=== PATIENT | female | born 1955 | race Caucasian/White ===

== ENCOUNTER 2016-10-23 23:02 | Emergency (ER) | payer OTHER, MEDICAID ==
[~2016-10-23] VITALS: Ht 165.1 cm; Wt 134.3 kg
[~2016-10-23 23:02] MED LIST: ACIDOPHILUS PROB1 MG PO; ALBU8.5H5 INH; ALPR0.257 PO; ARFO15VI INH; ASPI-515 PO; BENZ100C4 PO; CLIN300C93 PO; ENAL10TA PO; FAMO40TA PO; FLUT250D PO; FURO40TA6 PO; HYDR25TA6 PO; LORA10TA3 PO; METO5TAB2 PO; PRED20TA PO; TERB250T3 PO; TIOT18CA INH; VERA360C2 PO
[2016-10-23] MEDS ORDERED: HYDROmorphone 1 MG/ML, 1ML ONE (23:48)
[2016-10-24] MEDS ORDERED: MORPHINE SULFATE 4 MG/ML, 1ML IVPush PRN
[2016-10-24] MEDS ORDERED: HYDROmorphone 1 MG/ML, 1ML IM ONE
[2016-10-24 00:08] LABS: ASPARTATE AMINO TRANSFERASE 14 U/L (15-37); BLOOD UREA NITROGEN 11 mg/dL (7-18)
[2016-10-24] MEDS ORDERED: CIPROFLOXACIN 500 MG TABLET PO ONE (02:30)
[2016-10-24] MEDS ORDERED: CIPROFLOXACIN 500 MG TABLET ONE (02:59)
[2016-10-24 03:03] VITALS: BP 123/51
== END 2016-10-24 03:45 | disposition home or self-care (01) ==
LOC: ED 23:30
DX: N30.01 Acute cystitis with hematuria (principal); J44.9 Chronic obstructive pulmonary disease, unspecified; I11.0 Hypertensive heart disease with heart failure; I50.9 Heart failure, unspecified; I48.91 Unspecified atrial fibrillation
CPT/HCPCS: 36415; 74176; 80053; 81001; 85025; 87086; 96372; 99285; J1170

== ENCOUNTER 2017-04-08 13:15 | Emergency (ER) | payer OTHER, MEDICAID ==
[~2017-04-08] VITALS: Ht 165.1 cm; Wt 136.6 kg
[~2017-04-08 13:15] MED LIST changes: +BENZ-17 PO; -BENZ100C4 PO; +CLIN300C8 PO; -CLIN300C93 PO; -FAMO40TA PO; +FAMO40TA4 PO
[2017-04-08 14:25] LABS: RAPID INFLUENZA A POSITIVE (Negative); RAPID INFLUENZA B Negative (Negative)
[2017-04-08 14:47] LABS: MEAN CORPUSCULAR HEMOGLOBIN 26.4 pg (27.0-34.8); MEAN CORPUSCULAR VOLUME 80.2 fL (80-100); MEAN PLATELET VOLUME 7.8 fL (7.4-10.4); PLATELET COUNT 274 x10^3/uL (130-400); RED BLOOD COUNT 5.75 x10^6/uL (3.82-5.3); RED CELL DISTRIBUTION WIDTH 14.3 % (9.6-15.2)
[2017-04-08 15:00] LABS: ALANINE AMINOTRANSFERASE 27 U/L (12-78); ALBUMIN 3.5 g/dL (3.4-5.0); ANION GAP 6 mmol/L (5-15); CALCIUM 8.8 mg/dL (8.5-10.1); CHLORIDE 101 mmol/L (98-107); CREATININE 0.68 mg/dL (0.55-1.02)
[2017-04-08] MEDS ORDERED: OSELTAMIVIR 75 MG CAPSULE PO ONE (15:00)
[2017-04-08 15:02] LABS: ALKALINE PHOSPHATASE 89 U/L (45-117); BILIRUBIN,TOTAL 0.3 mg/dL (0.2-1.0); TOTAL PROTEIN 7.8 g/dL (6.4-8.2)
[2017-04-08 15:12] LABS: MD YES
[2017-04-08 15:14] LABS: BAND#(MANUAL) 1.55 x10^3/uL; BANDS%(MANUAL) 21 % (0-7); BASOS#(MANUAL) 0.15 x10^3/uL (0-0.1); BASOS% (MANUAL) 2 % (0-1); LYMPH#(MANUAL) 1.33 x10^3/uL (1-3.4); LYMPHS% (MANUAL) 18 % (22-44); MONOS#(MANUAL) 0.22 x10^3/uL (0.3-2.7); MONOS% (MANUAL) 3 % (2-9); SEG#(MANUAL) 4.14 x10^3/uL (1.8-6.8); SEGS% (MANUAL) 56 % (42-75)
[2017-04-08 15:15] LABS: <PLATELET ESTIMATE> ADEQUATE; <PLT MORPHOLOGY> NORMAL PLT MORPH; <RBC MORPHOLOGY> NORMAL
[2017-04-08 15:16] VITALS: BP 140/88
[2017-04-08] MEDS ORDERED: POTA20TA89 PO (15:24)
== END 2017-04-08 15:38 | disposition home or self-care (01) ==
LOC: ED 15:25
DX: J09.X2 Influenza due to identified novel influenza A virus with other respiratory manifestations (principal); J44.9 Chronic obstructive pulmonary disease, unspecified; I48.91 Unspecified atrial fibrillation; I50.9 Heart failure, unspecified; E66.9 Obesity, unspecified
CPT/HCPCS: 36415; 71020; 80053; 85025; 87400; 93005; 99285

== ENCOUNTER 2017-04-10 05:55 | Emergency (ER) | payer MEDICAID, OTHER ==
[~2017-04-10] VITALS: Ht 165.1 cm; Wt 130.0 kg
[~2017-04-10 05:55] MED LIST changes: +POTA20TA89 PO
[2017-04-10 07:27] LABS: CULTURE INDICATED? YES; MICROSCOPIC INDICATED
[2017-04-10] MEDS ORDERED: LEVOFLOXACIN/PMX 750MG/150ML 150 ML IVPB ONE (08:30)
[2017-04-10] MEDS ORDERED: SODIUM CHLORIDE FLUSH 10ML SYR IVF ONE (08:30)
[2017-04-10] MEDS ORDERED: SODIUM CHLORIDE 0.9% 1,000ML IVBOLUS ONE (08:30)
[2017-04-10 08:40] LABS: BASOPHILS # (AUTO) 0.02 x10^3/uL (0-0.1); BASOPHILS % (AUTO) 0 % (0-1); EOSINOPHILS # (AUTO) 0.11 x10^3/uL (0-0.4); EOSINOPHILS % (AUTO) 2 % (1-7); LYMPHOCYTES # (AUTO) 1.88 x10^3/uL (1-3.4); LYMPHOCYTES % (AUTO) 32 % (22-44); MD NO; MEAN CORPUSCULAR HEMOGLOBIN 26.6 pg (27.0-34.8); MEAN CORPUSCULAR VOLUME 80.6 fL (80-100); MEAN PLATELET VOLUME 7.8 fL (7.4-10.4); MONOCYTES # (AUTO) 0.65 x10^3/uL (0.2-0.8); MONOCYTES % (AUTO) 11 % (2-9); NEUTROPHILS # (AUTO) 3.17 x10^3/uL (1.8-6.8); NEUTROPHILS % (AUTO) 55 % (42-75); PLATELET COUNT 253 x10^3/uL (130-400); RED BLOOD COUNT 5.88 x10^6/uL (3.82-5.3); RED CELL DISTRIBUTION WIDTH 14.1 % (9.6-15.2)
[2017-04-10 08:50] LABS: ALANINE AMINOTRANSFERASE 31 U/L (12-78); ALBUMIN 3.5 g/dL (3.4-5.0); ANION GAP 8 mmol/L (5-15); CALCIUM 9.1 mg/dL (8.5-10.1); CHLORIDE 100 mmol/L (98-107); CREATININE 0.62 mg/dL (0.55-1.02)
[2017-04-10 08:52] LABS: ALKALINE PHOSPHATASE 86 U/L (45-117); BILIRUBIN,TOTAL 0.4 mg/dL (0.2-1.0); TOTAL PROTEIN 7.9 g/dL (6.4-8.2)
[2017-04-10] MEDS ORDERED: LEVOFLOXACIN/PMX 750MG/150ML 0 ML ONE (09:15)
[2017-04-10 09:22] VITALS: BP 144/70
[2017-04-10] MEDS ORDERED: LEVOFLOXACIN 750 MG TABLET ONE (09:49)
[2017-04-10] MEDS ORDERED: LEVOFLOXACIN 750 MG TABLET PO ONE (10:00)
== END 2017-04-10 09:53 | disposition home or self-care (01) ==
LOC: ED 09:47
DX: J11.00 Influenza due to unidentified influenza virus with unspecified type of pneumonia (principal); N30.90 Cystitis, unspecified without hematuria; M54.6 Pain in thoracic spine; I48.91 Unspecified atrial fibrillation; E66.9 Obesity, unspecified; Z88.0 Allergy status to penicillin; I10 Essential (primary) hypertension
CPT/HCPCS: 36415; 71046; 80053; 81001; 83605; 84484; 85025; 87040; 87077; 87086; 87186; 93005; 99285

== ENCOUNTER → 2017-07-10 | Outpatient (CLI) | payer OTHER, MEDICAID | END | disposition home or self-care (01) | LOC: CVU 10:46 | PROVIDERS: ATTEND Internal Medicine Cardiovascular Disease | DX: I35.0 Nonrheumatic aortic (valve) stenosis (principal); I48.91 Unspecified atrial fibrillation | CPT/HCPCS: 93306 ==

== ENCOUNTER 2017-07-16 09:52 | Observation (INO) | payer OTHER, MEDICAID ==
[~2017-07-16] VITALS: Ht 165.1 cm; Wt 163.8 kg
[2017-07-16] MEDS ORDERED: CRAN1CAP2 PO (10:07)
[2017-07-16] MEDS ORDERED: CYAN1TAB29 PO (10:07)
[2017-07-16] MEDS ORDERED: SODIUM CHLORIDE FLUSH 10ML SYR IVF ONE (10:30)
[2017-07-16 10:42] LABS: BASOPHILS # (AUTO) 0.07 x10^3/uL (0-0.1); BASOPHILS % (AUTO) 1 % (0-1); EOSINOPHILS # (AUTO) 0.19 x10^3/uL (0-0.4); EOSINOPHILS % (AUTO) 2 % (1-7); LYMPHOCYTES # (AUTO) 2.32 x10^3/uL (1-3.4); LYMPHOCYTES % (AUTO) 22 % (22-44); MD NO; MEAN CORPUSCULAR HEMOGLOBIN 26.8 pg (27.0-34.8); MEAN CORPUSCULAR VOLUME 81.2 fL (80-100); MONOCYTES % (AUTO) 7 % (2-9); NEUTROPHILS # (AUTO) 7.36 x10^3/uL (1.8-6.8); NEUTROPHILS % (AUTO) 69 % (42-75); PLATELET COUNT 299 x10^3/uL (130-400); RED BLOOD COUNT 5.33 x10^6/uL (3.82-5.3); RED CELL DISTRIBUTION WIDTH 15.4 % (9.6-15.2)
[2017-07-16 10:54] LABS: ALANINE AMINOTRANSFERASE 23 U/L (12-78); ALBUMIN 3.3 g/dL (3.4-5.0); ANION GAP 5 mmol/L (5-15); CALCIUM 8.6 mg/dL (8.5-10.1); CHLORIDE 102 mmol/L (98-107); CREATININE 0.85 mg/dL (0.55-1.02)
[2017-07-16 10:58] LABS: ALKALINE PHOSPHATASE 89 U/L (45-117); BILIRUBIN,TOTAL 0.3 mg/dL (0.2-1.0); TOTAL PROTEIN 7.7 g/dL (6.4-8.2); TROPONIN I < 0.015 ng/mL (0.000-0.045)
[2017-07-16] MEDS ORDERED: FUROSEMIDE 40 MG/4 ML ONE (11:23)
[2017-07-16 11:24] LABS: MICROSCOPIC NOT IND
[2017-07-16] MEDS ORDERED: FUROSEMIDE 40 MG/4 ML IV ONE (11:30)
[2017-07-16 11:33] LABS: CULTURE INDICATED? NO
[2017-07-16] MEDS ORDERED: BISACODYL 10 MG SUPP PR PRN (13:00)
[2017-07-16] MEDS ORDERED: DOCUSATE 100 MG CAPSULE PO PRN (13:00)
[2017-07-16] MEDS ORDERED: POLYETHYLENE GLYCOL 17 GM PACKET PO PRN (13:00)
[2017-07-16] MEDS ORDERED: POTASSIUM CHLORIDE 20 MEQ TAB.ER.PRT PO ONE (13:30)
[2017-07-16] MEDS ORDERED: ENOXAPARIN 40 MG/0.4 ML ONE (14:14)
[2017-07-16] MEDS: ENOXAPARIN 40 MG/0.4 ML SQ SCH (14:17)
[2017-07-16 15:14] VITALS: BP 135/67
[2017-07-16 16:12] LABS: TROPONIN I < 0.015 ng/mL (0.000-0.045)
[2017-07-16 16:29] VITALS: BP 135/67
[2017-07-16] MEDS: FUROSEMIDE 40 MG/4 ML IV SCH ×2 (17:00→17:39)
[2017-07-16] MEDS: METOCLOPRAMIDE 10MG TABLET PO SCH ×2 (17:39→20:47)
[2017-07-16] MEDS: BENZONATATE 100 MG CAPSULE PO SCH ×2 (17:39→20:46)
[2017-07-16] MEDS: FAMOTIDINE 40 MG TABLET PO SCH ×2 (17:39→20:46)
[2017-07-16] MEDS ORDERED: ALBUTEROL/IPRATROPIUM 2.5MG/0.5MG, 3 ML NPPB SCH (19:00)
[2017-07-16 19:10] VITALS: BP 120/71
[2017-07-16] MEDS: ALBUTEROL/IPRATROPIUM 2.5MG/0.5MG, 3 ML NPPB SCH (20:30)
[2017-07-16] MEDS: FLUTICASONE PROPIONATE PO SCH (20:46)
[2017-07-16 22:36] LABS: TROPONIN I < 0.015 ng/mL (0.000-0.045)
[2017-07-17 00:53] VITALS: BP 132/68
[2017-07-17 05:26] LABS: BASOPHILS % (AUTO) 0 % (0-1); EOSINOPHILS % (AUTO) 0 % (1-7); LYMPHOCYTES # (AUTO) 1.22 x10^3/uL (1-3.4); LYMPHOCYTES % (AUTO) 14 % (22-44); MD NO; MEAN CORPUSCULAR HEMOGLOBIN 26.4 pg (27.0-34.8); MEAN CORPUSCULAR HGB CONC 32.3 g/dL (32.4-35.8); MEAN CORPUSCULAR VOLUME 81.8 fL (80-100); MEAN PLATELET VOLUME 8.1 fL (7.4-10.4); MONOCYTES # (AUTO) 0.31 x10^3/uL (0.2-0.8); MONOCYTES % (AUTO) 3 % (2-9); NEUTROPHILS % (AUTO) 83 % (42-75); PLATELET COUNT 291 x10^3/uL (130-400); RED BLOOD COUNT 5.22 x10^6/uL (3.82-5.3); RED CELL DISTRIBUTION WIDTH 15.1 % (9.6-15.2)
[2017-07-17 05:35] LABS: ANION GAP 5 mmol/L (5-15); CALCIUM 8.6 mg/dL (8.5-10.1); CHLORIDE 103 mmol/L (98-107)
[2017-07-17 05:37] LABS: CREATININE 0.71 mg/dL (0.55-1.02)
[2017-07-17] MEDS: METOCLOPRAMIDE 10MG TABLET PO SCH ×4 (06:00→20:56)
[2017-07-17] MEDS: ALBUTEROL/IPRATROPIUM 2.5MG/0.5MG, 3 ML NPPB SCH ×4 (07:24→19:45)
[2017-07-17 07:35] VITALS: BP 131/89
[2017-07-17] MEDS: ASPIRIN 81 MG TABLET EC PO SCH (07:35)
[2017-07-17] MEDS: VERAPAMIL ER 180MG TABLET.ER PO SCH (07:35)
[2017-07-17] MEDS: BENZONATATE 100 MG CAPSULE PO SCH ×3 (07:35→20:55)
[2017-07-17] MEDS: FOLIC ACID 1 MG TABLET PO SCH (07:35)
[2017-07-17] MEDS: FAMOTIDINE 40 MG TABLET PO SCH ×3 (07:35→20:56)
[2017-07-17] MEDS: LORATADINE 10 MG TABLET PO SCH (07:35)
[2017-07-17] MEDS: CYANOCOBALAMIN 1,000 MCG TABLET PO SCH (07:35)
[2017-07-17] MEDS: HYDROCHLOROTHIAZIDE 25 MG TABLET PO SCH (07:36)
[2017-07-17] MEDS: ENALAPRIL 10 MG TABLET PO SCH (07:36)
[2017-07-17] MEDS: Tiotropium Bromide** (Spiriva**) 18 MCG INH SCH (07:36)
[2017-07-17] MEDS: FLUTICASONE PROPIONATE PO SCH ×2 (07:37→21:01)
[2017-07-17] MEDS ORDERED: REGADENOSON 0.4 MG/5 ML SYRINGE ONE (12:16)
[2017-07-17] MEDS: ENOXAPARIN 40 MG/0.4 ML SQ SCH (14:31)
[2017-07-17] MEDS: FUROSEMIDE 40 MG/4 ML IV SCH ×2 (14:31→20:56)
[2017-07-17 16:12] VITALS: BP 138/73
[2017-07-17] MEDS ORDERED: POTASSIUM CHLORIDE 10 MEQ TABLET.ER PO ONE (18:00)
[2017-07-17 20:00] VITALS: BP 144/73
[2017-07-18 02:00] VITALS: BP 123/76
[2017-07-18 05:24] LABS: CHLORIDE 103 mmol/L (98-107)
[2017-07-18 05:33] LABS: ANION GAP 6 mmol/L (5-15); CREATININE 0.67 mg/dL (0.55-1.02)
[2017-07-18] MEDS: METOCLOPRAMIDE 10MG TABLET PO SCH ×2 (06:00→13:33)
[2017-07-18] MEDS: ALBUTEROL/IPRATROPIUM 2.5MG/0.5MG, 3 ML NPPB SCH ×2 (07:00→11:00)
[2017-07-18 07:29] VITALS: BP 120/72
[2017-07-18] MEDS: FLUTICASONE PROPIONATE PO SCH (08:06)
[2017-07-18] MEDS: FUROSEMIDE 40 MG/4 ML IV SCH (08:06)
[2017-07-18] MEDS: Tiotropium Bromide** (Spiriva**) 18 MCG INH SCH (08:06)
[2017-07-18] MEDS: VERAPAMIL ER 180MG TABLET.ER PO SCH (08:07)
[2017-07-18] MEDS: FOLIC ACID 1 MG TABLET PO SCH (08:07)
[2017-07-18] MEDS: BENZONATATE 100 MG CAPSULE PO SCH (08:08)
[2017-07-18] MEDS: HYDROCHLOROTHIAZIDE 25 MG TABLET PO SCH (08:08)
[2017-07-18] MEDS: CYANOCOBALAMIN 1,000 MCG TABLET PO SCH (08:08)
[2017-07-18] MEDS: LORATADINE 10 MG TABLET PO SCH (08:08)
[2017-07-18] MEDS: ASPIRIN 81 MG TABLET EC PO SCH (08:08)
[2017-07-18] MEDS: FAMOTIDINE 40 MG TABLET PO SCH (08:08)
[2017-07-18] MEDS: ENALAPRIL 10 MG TABLET PO SCH (08:10)
[2017-07-18] MEDS ORDERED: LORazepam 2 MG/ML, 1ML ONE (10:10)
[2017-07-18] MEDS ORDERED: LORazepam 2 MG/ML, 1ML IVPush ONE (10:30)
[2017-07-18 13:03] VITALS: BP 123/77
[2017-07-18] MEDS: ENOXAPARIN 40 MG/0.4 ML SQ SCH (13:37)
[2017-07-18] MEDS ORDERED: PRED20TA PO (13:56)
== END 2017-07-18 15:40 | disposition home or self-care (01) ==
LOC: ED 12:16 → INTOOBSV 12:17 → EDIP 12:17 → 4WST 14:39 → DCLOUNGE 07-18 15:25
PROVIDERS: ADMIT Family Medicine; ATTEND Family Medicine
DX: J44.1 Chronic obstructive pulmonary disease with (acute) exacerbation (principal); R07.89 Other chest pain; I11.0 Hypertensive heart disease with heart failure; I50.1 Left ventricular failure, unspecified; I48.91 Unspecified atrial fibrillation; I27.20 Pulmonary hypertension, unspecified; I25.10 Atherosclerotic heart disease of native coronary artery without angina pectoris; G47.33 Obstructive sleep apnea (adult) (pediatric); F17.210 Nicotine dependence, cigarettes, uncomplicated; E66.01 Morbid (severe) obesity due to excess calories; E10.9 Type 1 diabetes mellitus without complications; Z85.44 Personal history of malignant neoplasm of other female genital organs
CPT/HCPCS: 36415; 71045; 78452; 80048; 80053; 81003; 83036; 83605; 83735; 83880; 84484; 85025; 85379; 87040; 93005; 93017; 93970; 94640; 96372; 96374; 96375; 96376; 97161; 99285; A9502; C9898; G0378; G8978; G8979; G8980; J1650; J1940; J2060; J2785; J7512; J7620

== ENCOUNTER 2017-09-01 13:08 | Observation (INO) | payer OTHER, MEDICAID ==
[~2017-09-01] VITALS: Ht 165.1 cm; Wt 141.8 kg
[~2017-09-01 13:08] MED LIST changes: +CRAN1CAP2 PO; +CYAN1TAB29 PO
[2017-09-01] MEDS ORDERED: methylPREDNISolone SOD SUCC 125 MG/2 ML IVP ONE (13:30)
[2017-09-01] MEDS ORDERED: ALBUTEROL SULFATE 2.5 MG/3 ML NPPB ONE (13:30)
[2017-09-01] MEDS ORDERED: SODIUM CHLORIDE FLUSH 10ML SYR IVF ONE (13:30)
[2017-09-01] MEDS ORDERED: ALBUTEROL SULFATE 2.5 MG/3 ML ONE (13:39)
[2017-09-01 13:46] LABS: BASOPHILS # (AUTO) 0.01 x10^3/uL (0-0.1); BASOPHILS % (AUTO) 0 % (0-1); EOSINOPHILS # (AUTO) 0.11 x10^3/uL (0-0.4); EOSINOPHILS % (AUTO) 1 % (1-7); LYMPHOCYTES # (AUTO) 1.86 x10^3/uL (1-3.4); LYMPHOCYTES % (AUTO) 20 % (22-44); MD NO; MEAN CORPUSCULAR HEMOGLOBIN 26.7 pg (27.0-34.8); MEAN CORPUSCULAR HGB CONC 33.1 g/dL (32.4-35.8); MEAN CORPUSCULAR VOLUME 80.8 fL (80-100); MEAN PLATELET VOLUME 7.8 fL (7.4-10.4); MONOCYTES # (AUTO) 0.84 x10^3/uL (0.2-0.8); MONOCYTES % (AUTO) 9 % (2-9); NEUTROPHILS # (AUTO) 6.38 x10^3/uL (1.8-6.8); NEUTROPHILS % (AUTO) 69 % (42-75); PLATELET COUNT 295 x10^3/uL (130-400); RED BLOOD COUNT 5.45 x10^6/uL (3.82-5.3); RED CELL DISTRIBUTION WIDTH 13.9 % (9.6-15.2)
[2017-09-01] MEDS ORDERED: methylPREDNISolone SOD SUCC 125 MG/2 ML ONE (13:48)
[2017-09-01 13:57] LABS: ALANINE AMINOTRANSFERASE 25 U/L (12-78); ALBUMIN 3.6 g/dL (3.4-5.0); ANION GAP 8 mmol/L (5-15); CALCIUM 9.1 mg/dL (8.5-10.1); CHLORIDE 93 mmol/L (98-107)
[2017-09-01 14:01] LABS: ALKALINE PHOSPHATASE 74 U/L (45-117); BILIRUBIN,TOTAL 0.3 mg/dL (0.2-1.0); CREATININE 0.95 mg/dL (0.55-1.02); TOTAL PROTEIN 7.6 g/dL (6.4-8.2); TROPONIN I < 0.015 ng/mL (0.000-0.045)
[2017-09-01] MEDS ORDERED: ENOXAPARIN 40 MG/0.4 ML SQ SCH (16:00)
[2017-09-01] MEDS ORDERED: ONDANSETRON ODT 4 MG PO PRN (16:00)
[2017-09-01] MEDS ORDERED: POLYETHYLENE GLYCOL 17 GM PACKET PO PRN (16:00)
[2017-09-01] MEDS ORDERED: BISACODYL 10 MG SUPP PR PRN (16:00)
[2017-09-01] MEDS ORDERED: ENALAPRILAT 1.25 MG/ML, 2ML IVPush PRN (16:00)
[2017-09-01] MEDS ORDERED: ACETAMINOPHEN 325 MG TABLET PO PRN (16:00)
[2017-09-01] MEDS ORDERED: ONDANSETRON 2MG/ML, 2ML IVPush PRN (16:00)
[2017-09-01] MEDS ORDERED: hydrALAzine 20 MG/ML, 1ML IVPush PRN (16:00)
[2017-09-01] MEDS ORDERED: GUAIFENESIN/DM 200-20MG, 10ML UDC PO PRN (16:00)
[2017-09-01] MEDS ORDERED: ALBUTEROL SULFATE 2.5 MG/3 ML NPPB PRN (16:30)
[2017-09-01] MEDS: SODIUM CHLORIDE 0.9% 1,000 ML IV SCH (17:13)
[2017-09-01 17:17] VITALS: BP 135/80
[2017-09-01 19:07] VITALS: BP 136/78
[2017-09-01] MEDS ORDERED: ALBUTEROL/IPRATROPIUM 2.5MG/0.5MG, 3 ML NPPB PRN (20:00)
[2017-09-01] MEDS ORDERED: ALBUTEROL SULFATE 2.5MG/0.5ML NPPB PRN (20:00)
[2017-09-01] MEDS ORDERED: FLUTICASONE FUROATE 100MCG/INH INH SCH (21:00)
[2017-09-01] MEDS: FAMOTIDINE 40 MG TABLET PO SCH (21:55)
[2017-09-01] MEDS: BENZONATATE 100 MG CAPSULE PO SCH (21:55)
[2017-09-01] MEDS: VERAPAMIL 120MG TABLET PO SCH (21:55)
[2017-09-02 03:22] VITALS: BP 147/81
[2017-09-02] MEDS: SODIUM CHLORIDE 0.9% 1,000 ML IV SCH (04:53)
[2017-09-02 06:00] LABS: ALBUMIN 3.2 g/dL (3.4-5.0); ANION GAP 7 mmol/L (5-15); CALCIUM 8.3 mg/dL (8.5-10.1); CHLORIDE 99 mmol/L (98-107)
[2017-09-02 06:01] LABS: BASOPHILS # (AUTO) 0.01 x10^3/uL (0-0.1); BASOPHILS % (AUTO) 0 % (0-1); EOSINOPHILS % (AUTO) 0 % (1-7); LYMPHOCYTES # (AUTO) 0.98 x10^3/uL (1-3.4); LYMPHOCYTES % (AUTO) 15 % (22-44); MD NO; MEAN CORPUSCULAR HEMOGLOBIN 26.4 pg (27.0-34.8); MEAN CORPUSCULAR HGB CONC 33.2 g/dL (32.4-35.8); MEAN CORPUSCULAR VOLUME 79.6 fL (80-100); MEAN PLATELET VOLUME 7.8 fL (7.4-10.4); MONOCYTES # (AUTO) 0.25 x10^3/uL (0.2-0.8); MONOCYTES % (AUTO) 4 % (2-9); NEUTROPHILS # (AUTO) 5.29 x10^3/uL (1.8-6.8); NEUTROPHILS % (AUTO) 81 % (42-75); PLATELET COUNT 297 x10^3/uL (130-400); RED BLOOD COUNT 5.51 x10^6/uL (3.82-5.3); RED CELL DISTRIBUTION WIDTH 14.3 % (9.6-15.2)
[2017-09-02 06:04] LABS: ALANINE AMINOTRANSFERASE 26 U/L (12-78); ALKALINE PHOSPHATASE 73 U/L (45-117); BILIRUBIN,TOTAL 0.3 mg/dL (0.2-1.0); CREATININE 0.63 mg/dL (0.55-1.02); TOTAL PROTEIN 7.5 g/dL (6.4-8.2)
[2017-09-02 07:37] VITALS: BP 160/80
[2017-09-02] MEDS: FAMOTIDINE 40 MG TABLET PO SCH (08:49)
[2017-09-02] MEDS: BENZONATATE 100 MG CAPSULE PO SCH (08:50)
[2017-09-02] MEDS: VERAPAMIL 120MG TABLET PO SCH (08:50)
[2017-09-02] MEDS ORDERED: CYANOCOBALAMIN 1,000 MCG TABLET PO SCH (09:00)
[2017-09-02] MEDS ORDERED: ASPIRIN 81 MG TABLET EC PO SCH (09:00)
[2017-09-02] MEDS ORDERED: LORATADINE 10 MG TABLET PO SCH (09:00)
[2017-09-02] MEDS ORDERED: ENALAPRIL 10 MG TABLET PO SCH (09:00)
[2017-09-02] MEDS ORDERED: FUROSEMIDE 40 MG TABLET PO SCH (09:00)
[2017-09-02] MEDS ORDERED: SENNA/DOCUSATE TABLET PO SCH (09:00)
[2017-09-02] MEDS ORDERED: FLUTICASONE FUROATE 100MCG/INH INH SCH (09:00)
[2017-09-02] MEDS ORDERED: HYDROCHLOROTHIAZIDE 25 MG TABLET PO SCH (09:00)
[2017-09-02] MEDS ORDERED: TEMPLATE NON-FORMULARY MED. (Cranberry Conc/Ascorbic Acid** (Cranberry 12,600 Mg Softgel PO SCH (09:00)
[2017-09-02] MEDS ORDERED: PRED20TA PO (14:31)
[2017-09-02 14:54] VITALS: BP 125/74
== END 2017-09-02 15:54 | disposition home or self-care (01) ==
LOC: ED 15:00 → EDIP 15:01 → INTOOBSV 15:01 → ED 15:07 → 3NE 16:27
PROVIDERS: ADMIT Family Medicine; ATTEND Family Medicine
DX: J44.1 Chronic obstructive pulmonary disease with (acute) exacerbation (principal); E87.1 Hypo-osmolality and hyponatremia; I48.91 Unspecified atrial fibrillation; K21.9 Gastro-esophageal reflux disease without esophagitis; I11.0 Hypertensive heart disease with heart failure; I50.32 Chronic diastolic (congestive) heart failure; E10.9 Type 1 diabetes mellitus without complications; F17.200 Nicotine dependence, unspecified, uncomplicated; I25.10 Atherosclerotic heart disease of native coronary artery without angina pectoris; Z82.49 Family history of ischemic heart disease and other diseases of the circulatory system; Z85.44 Personal history of malignant neoplasm of other female genital organs
CPT/HCPCS: 36415; 71045; 80053; 83880; 84484; 85025; 93005; 94640; 96361; 96372; 96374; 99285; G0378; J1650; J2930; J7030; J7512; J7613

== ENCOUNTER 2017-12-19 20:11 | Emergency (ER) | payer OTHER, MEDICAID ==
[~2017-12-19] VITALS: Ht 165.1 cm; Wt 150.0 kg
[2017-12-19 20:15] VITALS: BP 103/82
== END 2017-12-19 20:51 | disposition home or self-care (01) ==
LOC: ED 20:45
DX: L76.21 Postprocedural hemorrhage of skin and subcutaneous tissue following a dermatologic procedure (principal); Y83.9 Surgical procedure, unspecified as the cause of abnormal reaction of the patient, or of later complication, without mention of misadventure at the time of the procedure; I10 Essential (primary) hypertension; J44.9 Chronic obstructive pulmonary disease, unspecified
CPT/HCPCS: 99282

== ENCOUNTER 2018-02-14 22:29 | Emergency (ER) | payer OTHER, MEDICAID ==
[~2018-02-14] VITALS: Ht 160 cm; Wt 93.0 kg
[2018-02-14 22:36] VITALS: BP 134/79
[2018-02-14] MEDS ORDERED: ALBUTEROL/IPRATROPIUM 2.5MG/0.5MG, 3 ML ONE (22:48)
[2018-02-14] MEDS ORDERED: ALBUTEROL/IPRATROPIUM 2.5MG/0.5MG, 3 ML NPPB ONE (23:00)
[2018-02-14 23:04] LABS: BASOPHILS # (AUTO) 0.01 x10^3/uL (0-0.1); BASOPHILS % (AUTO) 0 % (0-1); EOSINOPHILS # (AUTO) 0.09 x10^3/uL (0-0.4); EOSINOPHILS % (AUTO) 1 % (1-7); LYMPHOCYTES # (AUTO) 0.47 x10^3/uL (1-3.4); LYMPHOCYTES % (AUTO) 5 % (22-44); MD NO; MEAN CORPUSCULAR HEMOGLOBIN 27.1 pg (27.0-34.8); MEAN CORPUSCULAR HGB CONC 33.1 g/dL (32.4-35.8); MEAN PLATELET VOLUME 7.9 fL (7.4-10.4); MONOCYTES # (AUTO) 0.36 x10^3/uL (0.2-0.8); MONOCYTES % (AUTO) 4 % (2-9); NEUTROPHILS # (AUTO) 8.65 x10^3/uL (1.8-6.8); NEUTROPHILS % (AUTO) 90 % (42-75); PLATELET COUNT 272 x10^3/uL (130-400); RED BLOOD COUNT 5.26 x10^6/uL (3.82-5.3); RED CELL DISTRIBUTION WIDTH 14.6 % (9.6-15.2)
[2018-02-14 23:19] LABS: ALBUMIN 3.3 g/dL (3.4-5.0); ANION GAP 7 mmol/L (5-15); CHLORIDE 102 mmol/L (98-107); CREATININE 1.13 mg/dL (0.55-1.02)
[2018-02-15 00:22] LABS: FREE T4 (FREE THYROXINE) 1.22 ng/dL (0.76-1.46); THYROID STIMULATING HORMONE 0.956 mIU/L (0.358-3.740)
== END 2018-02-15 01:03 | disposition home or self-care (01) ==
LOC: ED 22:57
DX: B35.6 Tinea cruris (principal); I50.9 Heart failure, unspecified; I11.0 Hypertensive heart disease with heart failure; I48.91 Unspecified atrial fibrillation; J44.9 Chronic obstructive pulmonary disease, unspecified; F17.200 Nicotine dependence, unspecified, uncomplicated
CPT/HCPCS: 36415; 71045; 80048; 82040; 83605; 84145; 84439; 84443; 85025; 94640; 99285; J7620

== ENCOUNTER 2018-05-08 19:40 | Emergency (ER) | payer MEDICARE, MEDICAID ==
[~2018-05-08] VITALS: Ht 165.1 cm; Wt 145.8 kg
[~2018-05-08 19:40] MED LIST changes: +LORA-247 PO; -LORA10TA3 PO
[2018-05-08 20:32] LABS: BASOPHILS # (AUTO) 0.06 x10^3/uL (0-0.1); BASOPHILS % (AUTO) 1 % (0-1); EOSINOPHILS # (AUTO) 0.07 x10^3/uL (0-0.4); EOSINOPHILS % (AUTO) 1 % (1-7); LYMPHOCYTES % (AUTO) 8 % (22-44); MD NO; MEAN CORPUSCULAR HEMOGLOBIN 26.7 pg (27.0-34.8); MEAN CORPUSCULAR HGB CONC 32.9 g/dL (32.4-35.8); MEAN CORPUSCULAR VOLUME 81.2 fL (80-100); MEAN PLATELET VOLUME 7.8 fL (7.4-10.4); MONOCYTES # (AUTO) 0.34 x10^3/uL (0.2-0.8); MONOCYTES % (AUTO) 3 % (2-9); NEUTROPHILS # (AUTO) 9.57 x10^3/uL (1.8-6.8); NEUTROPHILS % (AUTO) 88 % (42-75); PLATELET COUNT 304 x10^3/uL (130-400); RED BLOOD COUNT 5.16 x10^6/uL (3.82-5.3); RED CELL DISTRIBUTION WIDTH 15.3 % (9.6-15.2)
[2018-05-08 20:38] LABS: ALBUMIN 3.4 g/dL (3.4-5.0); ANION GAP 4 mmol/L (5-15); CALCIUM 8.7 mg/dL (8.5-10.1); CHLORIDE 107 mmol/L (98-107); CREATININE 1.17 mg/dL (0.55-1.02)
[2018-05-08 20:42] LABS: TROPONIN I < 0.015 ng/mL (0.000-0.045)
[2018-05-08 20:51] LABS: RAPID INFLUENZA A Negative (Negative); RAPID INFLUENZA B Negative (Negative)
[2018-05-08 21:56] VITALS: BP 124/53
== END 2018-05-08 22:10 | disposition home or self-care (01) ==
LOC: ED 22:04
DX: J00 Acute nasopharyngitis [common cold] (principal); B34.9 Viral infection, unspecified; J44.9 Chronic obstructive pulmonary disease, unspecified; I50.9 Heart failure, unspecified; I11.0 Hypertensive heart disease with heart failure; I48.91 Unspecified atrial fibrillation; E66.9 Obesity, unspecified
CPT/HCPCS: 36415; 71045; 80048; 82040; 83880; 84484; 85025; 87400; 93005; 99284

== ENCOUNTER → 2018-06-28 | Outpatient (CLI) | payer MEDICARE, MEDICAID | END | disposition home or self-care (01) | LOC: CVU 12:30 | PROVIDERS: ATTEND Internal Medicine Cardiovascular Disease | DX: I08.0 Rheumatic disorders of both mitral and aortic valves (principal); I65.23 Occlusion and stenosis of bilateral carotid arteries; E78.5 Hyperlipidemia, unspecified; J44.9 Chronic obstructive pulmonary disease, unspecified; Z87.891 Personal history of nicotine dependence | CPT/HCPCS: 93306; 93880 ==

== ENCOUNTER 2019-03-07 14:29 | Inpatient (IN) | payer MEDICARE, MEDICAID ==
[~2019-03-07] VITALS: Ht 165.1 cm; Wt 136.0 kg
[2019-03-07] MEDS ORDERED: SODIUM CHLORIDE 0.9% 1,000ML IVBOLUS ONE (15:00)
[2019-03-07] MEDS ORDERED: CEFTRIAXONE PMX 1GM/50ML 50 ML IVPB ONE (15:00)
[2019-03-07 15:19] LABS: MEAN CORPUSCULAR HEMOGLOBIN 27.5 pg (27.0-34.8); MEAN CORPUSCULAR HGB CONC 32.6 g/dL (32.4-35.8); MEAN CORPUSCULAR VOLUME 84.6 fL (80-100); MEAN PLATELET VOLUME 7.8 fL (7.4-10.4); PLATELET COUNT 271 x10^3/uL (130-400); RED BLOOD COUNT 5.07 x10^6/uL (3.82-5.3); RED CELL DISTRIBUTION WIDTH 14.4 % (9.6-15.2)
[2019-03-07] MEDS ORDERED: CEFTRIAXONE PMX 1GM/50ML 50 ML ONE (15:23)
[2019-03-07 15:30] LABS: ANION GAP 10 mmol/L (5-15); CALCIUM 8.7 mg/dL (8.5-10.1); CHLORIDE 100 mmol/L (98-107); CREATININE 1.03 mg/dL (0.55-1.02)
[2019-03-07] MEDS ORDERED: ACETAMINOPHEN 500 MG TABLET PO ONE (15:30)
[2019-03-07] MEDS ORDERED: ACETAMINOPHEN 500 MG TABLET ONE (15:30)
--- NOTE | 2019-03-07 15:40 | NUR ---
rEPORT RECEVIED ASSUMED PATIENT CARE. Patient resting in bed, mouth breathing, IV infusing NS solution. Medicated for the high temperature. Will recheck.
[2019-03-07 15:41] LABS: BAND#(MANUAL) 3.62 x10^3/uL; BANDS%(MANUAL) 12 % (0-7); LYMPH#(MANUAL) 1.51 x10^3/uL (1-3.4); LYMPHS% (MANUAL) 5 % (22-44); MD YES; MONOS#(MANUAL) 1.21 x10^3/uL (0.3-2.7); MONOS% (MANUAL) 4 % (2-9); SEG#(MANUAL) 23.86 x10^3/uL (1.8-6.8); SEGS% (MANUAL) 79 % (42-75)
[2019-03-07 15:42] LABS: <PLATELET ESTIMATE> ADEQUATE; <PLT MORPHOLOGY> NORMAL PLT MORPH; <RBC MORPHOLOGY> NORMAL
--- NOTE | 2019-03-07 16:00 | NUR ---
Patient's temperature rechecked. now 101.1 provider informed. IV positional but infusing will monitor.
[2019-03-07] MEDS ORDERED: SODIUM CHLORIDE FLUSH 10ML SYR IVF PRN (17:00)
[2019-03-07] MEDS ORDERED: ONDANSETRON ODT 4 MG PO PRN (17:00)
[2019-03-07] MEDS ORDERED: LABETALOL 5MG/ML, 20ML IVPush PRN (17:00)
[2019-03-07] MEDS ORDERED: ACETAMINOPHEN 325 MG TABLET PO PRN (17:00)
[2019-03-07] MEDS ORDERED: ENALAPRILAT 1.25 MG/ML, 2ML IVPush PRN (17:00)
[2019-03-07] MEDS ORDERED: GUAIFENESIN/DM 200-20MG, 10ML UDC PO PRN (17:00)
[2019-03-07] MEDS ORDERED: hydrALAzine 20 MG/ML, 1ML IVPush PRN (17:00)
[2019-03-07] MEDS ORDERED: HYDROCHLOROTHIAZIDE 25 MG TABLET PO ONE (17:30)
[2019-03-07] MEDS ORDERED: IPRATROPIUM 0.5 MG/2.5 ML INHA HHN SCH ×2 (17:30→21:00)
--- NOTE | 2019-03-07 18:00 | NUR ---
Report given to Cristian LIN
--- NOTE | 2019-03-07 18:06 | NUR ---
Patient transported to 5th floor with tech and monitor. All belongings with patient.
[2019-03-07 18:27] VITALS: BP 90/54
[2019-03-07] MEDS: SODIUM CHLORIDE 0.9% 1,000 ML IV SCH (18:33)
[2019-03-07] MEDS ORDERED: ALBUTEROL SULFATE 2.5 MG/3 ML NPPB PRN (19:00)
[2019-03-07 19:51] VITALS: BP 106/67
[2019-03-07] MEDS: BUDESONIDE 0.5 MG/2 ML INHA NPPB SCH (21:00)
[2019-03-07] MEDS: HEPARIN 5,000 UNITS/ML, 1ML SQ SCH (21:18)
[2019-03-07] MEDS: NICOTINE 21 MG/24 HR PATCH.TD24 TD SCH (21:19)
[2019-03-07] MEDS: FAMOTIDINE 20 MG TABLET PO SCH (21:19)
[2019-03-08 02:22] VITALS: BP 130/58
[2019-03-08] MEDS: SODIUM CHLORIDE 0.9% 1,000 ML IV SCH ×2 (03:20→14:49)
[2019-03-08] MEDS ORDERED: CEFTRIAXONE PMX 1GM/50ML 50 ML IV SCH (05:00)
[2019-03-08] MEDS: HEPARIN 5,000 UNITS/ML, 1ML SQ SCH ×3 (05:29→21:52)
[2019-03-08] MEDS: ASPIRIN 81 MG TABLET EC PO SCH (05:29)
[2019-03-08 06:05] LABS: MEAN CORPUSCULAR HEMOGLOBIN 27.4 pg (27.0-34.8); MEAN CORPUSCULAR HGB CONC 32.1 g/dL (32.4-35.8); MEAN CORPUSCULAR VOLUME 85.3 fL (80-100); PLATELET COUNT 234 x10^3/uL (130-400); RED BLOOD COUNT 4.81 x10^6/uL (3.82-5.3); RED CELL DISTRIBUTION WIDTH 14.7 % (9.6-15.2)
[2019-03-08 06:15] LABS: ANION GAP 9 mmol/L (5-15); CALCIUM 8.9 mg/dL (8.5-10.1); CHLORIDE 101 mmol/L (98-107)
[2019-03-08 06:16] LABS: CREATININE 1.06 mg/dL (0.55-1.02); HEMOGLOBIN A1C 5.3 % (4.2-6.3)
[2019-03-08 06:50] LABS: MD YES
[2019-03-08 07:05] LABS: BAND#(MANUAL) 3.32 x10^3/uL; BANDS%(MANUAL) 13 % (0-7); BASOS#(MANUAL) 0.26 x10^3/uL (0-0.1); BASOS% (MANUAL) 1 % (0-1); LYMPH#(MANUAL) 1.53 x10^3/uL (1-3.4); LYMPHS% (MANUAL) 6 % (22-44); MONOS#(MANUAL) 1.79 x10^3/uL (0.3-2.7); MONOS% (MANUAL) 7 % (2-9); SEG#(MANUAL) 18.62 x10^3/uL (1.8-6.8); SEGS% (MANUAL) 73 % (42-75)
[2019-03-08 07:08] LABS: <PLATELET ESTIMATE> ADEQUATE; <PLT MORPHOLOGY> NORMAL PLT MORPH; <RBC MORPHOLOGY> NORMAL
[2019-03-08] MEDS: ENALAPRIL 10 MG TABLET PO SCH (07:52)
[2019-03-08] MEDS: BENZONATATE 100 MG CAPSULE PO SCH ×3 (07:52→21:00)
[2019-03-08] MEDS: VERAPAMIL ER 180MG TABLET.ER PO SCH (07:52)
[2019-03-08] MEDS: FAMOTIDINE 20 MG TABLET PO SCH (07:52)
[2019-03-08] MEDS: FUROSEMIDE 40 MG TABLET PO SCH (07:53)
[2019-03-08] MEDS: POTASSIUM CHLORIDE 20 MEQ PACKET PO SCH (07:53)
[2019-03-08 08:30] VITALS: BP 125/67
[2019-03-08] MEDS ORDERED: FLUTICASONE FUROATE 100MCG/INH INH SCH (09:00)
[2019-03-08] MEDS: BUDESONIDE 0.5 MG/2 ML INHA NPPB SCH ×2 (09:00→20:24)
[2019-03-08] MEDS: IPRATROPIUM 0.5 MG/2.5 ML INHA HHN SCH ×3 (09:00→20:24)
[2019-03-08 16:50] VITALS: BP 114/70
[2019-03-08] MEDS: CLINDAMYCIN PMX 600MG/50ML 50 ML IV SCH (18:42)
[2019-03-08] MEDS: NICOTINE 21 MG/24 HR PATCH.TD24 TD SCH (20:00)
[2019-03-08 20:43] VITALS: BP 97/62
[2019-03-09] MEDS: CLINDAMYCIN PMX 600MG/50ML 50 ML IV SCH ×2 (00:03→08:09)
[2019-03-09] MEDS: SODIUM CHLORIDE 0.9% 1,000 ML IV SCH ×2 (00:03→08:12)
[2019-03-09 01:50] VITALS: BP 107/68
[2019-03-09] MEDS: IPRATROPIUM 0.5 MG/2.5 ML INHA HHN SCH ×4 (03:00→21:00)
[2019-03-09 04:41] LABS: ANION GAP 6 mmol/L (5-15); CALCIUM 8.4 mg/dL (8.5-10.1); CHLORIDE 104 mmol/L (98-107)
[2019-03-09 04:42] LABS: BASOPHILS # (AUTO) 0.08 x10^3/uL (0-0.1); BASOPHILS % (AUTO) 1 % (0-1); CREATININE 0.78 mg/dL (0.55-1.02); EOSINOPHILS # (AUTO) 0.16 x10^3/uL (0-0.4); EOSINOPHILS % (AUTO) 1 % (1-7); LYMPHOCYTES # (AUTO) 1.04 x10^3/uL (1-3.4); LYMPHOCYTES % (AUTO) 6 % (22-44); MD NO; MEAN CORPUSCULAR HEMOGLOBIN 27.3 pg (27.0-34.8); MEAN CORPUSCULAR HGB CONC 32.1 g/dL (32.4-35.8); MEAN CORPUSCULAR VOLUME 85.1 fL (80-100); MEAN PLATELET VOLUME 8.3 fL (7.4-10.4); MONOCYTES # (AUTO) 0.84 x10^3/uL (0.2-0.8); MONOCYTES % (AUTO) 5 % (2-9); NEUTROPHILS # (AUTO) 14.28 x10^3/uL (1.8-6.8); NEUTROPHILS % (AUTO) 87 % (42-75); PLATELET COUNT 210 x10^3/uL (130-400); RED BLOOD COUNT 4.25 x10^6/uL (3.82-5.3); RED CELL DISTRIBUTION WIDTH 14.7 % (9.6-15.2)
[2019-03-09] MEDS: ASPIRIN 81 MG TABLET EC PO SCH (05:45)
[2019-03-09] MEDS: HEPARIN 5,000 UNITS/ML, 1ML SQ SCH (05:45)
[2019-03-09 06:03] VITALS: BP 103/68
[2019-03-09] MEDS: POTASSIUM CHLORIDE 20 MEQ PACKET PO SCH ×2 (08:00→08:10)
[2019-03-09] MEDS: BENZONATATE 100 MG CAPSULE PO SCH ×3 (08:09→21:47)
[2019-03-09] MEDS: FAMOTIDINE 20 MG TABLET PO SCH (08:10)
[2019-03-09] MEDS: ENALAPRIL 10 MG TABLET PO SCH (08:10)
[2019-03-09] MEDS: VERAPAMIL ER 180MG TABLET.ER PO SCH (08:10)
[2019-03-09] MEDS: FUROSEMIDE 40 MG TABLET PO SCH (08:10)
[2019-03-09] MEDS: BUDESONIDE 0.5 MG/2 ML INHA NPPB SCH ×2 (08:52→21:00)
[2019-03-09 12:22] VITALS: BP 107/71
[2019-03-09] MEDS: APIXABAN 5 MG TABLET PO SCH ×2 (12:50→21:47)
[2019-03-09] MEDS: ACETAMINOPHEN 325 MG TABLET PO SCH ×2 (12:50→18:34)
[2019-03-09] MEDS: CLINDAMYCIN 300 MG CAPSULE PO SCH (16:37)
[2019-03-09] MEDS: NICOTINE 21 MG/24 HR PATCH.TD24 TD SCH (20:00)
[2019-03-09 20:48] VITALS: BP 102/68
[2019-03-09] MEDS ORDERED: APIXABAN 5 MG TABLET PO SCH (21:00)
[2019-03-10] MEDS: ACETAMINOPHEN 325 MG TABLET PO SCH ×4 (00:53→16:54)
[2019-03-10] MEDS: CLINDAMYCIN 300 MG CAPSULE PO SCH ×3 (00:54→16:54)
[2019-03-10 01:08] VITALS: BP 106/71
[2019-03-10] MEDS: IPRATROPIUM 0.5 MG/2.5 ML INHA HHN SCH ×4 (03:30→22:00)
[2019-03-10] MEDS: ASPIRIN 81 MG TABLET EC PO SCH (05:52)
[2019-03-10 06:12] LABS: BASOPHILS # (AUTO) 0.01 x10^3/uL (0-0.1); BASOPHILS % (AUTO) 0 % (0-1); EOSINOPHILS # (AUTO) 0.12 x10^3/uL (0-0.4); EOSINOPHILS % (AUTO) 1 % (1-7); LYMPHOCYTES # (AUTO) 1.02 x10^3/uL (1-3.4); LYMPHOCYTES % (AUTO) 9 % (22-44); MD NO; MEAN CORPUSCULAR HEMOGLOBIN 27.4 pg (27.0-34.8); MEAN CORPUSCULAR HGB CONC 32.5 g/dL (32.4-35.8); MEAN CORPUSCULAR VOLUME 84.5 fL (80-100); MEAN PLATELET VOLUME 8.3 fL (7.4-10.4); MONOCYTES # (AUTO) 0.76 x10^3/uL (0.2-0.8); MONOCYTES % (AUTO) 7 % (2-9); NEUTROPHILS % (AUTO) 83 % (42-75); PLATELET COUNT 235 x10^3/uL (130-400); RED BLOOD COUNT 4.42 x10^6/uL (3.82-5.3); RED CELL DISTRIBUTION WIDTH 14.5 % (9.6-15.2)
[2019-03-10 06:30] LABS: ANION GAP 4 mmol/L (5-15); CHLORIDE 102 mmol/L (98-107); CREATININE 0.89 mg/dL (0.55-1.02)
[2019-03-10] MEDS ORDERED: SENNA/DOCUSATE TABLET PO PRN (08:00)
[2019-03-10] MEDS: POTASSIUM CHLORIDE 20 MEQ PACKET PO SCH (08:00)
[2019-03-10] MEDS ORDERED: POLYETHYLENE GLYCOL 17 GM PACKET PO PRN (08:00)
[2019-03-10] MEDS: BUDESONIDE 0.5 MG/2 ML INHA NPPB SCH ×2 (08:45→22:00)
[2019-03-10 09:03] VITALS: BP 99/65
[2019-03-10] MEDS: APIXABAN 5 MG TABLET PO SCH ×2 (09:21→20:58)
[2019-03-10] MEDS: FUROSEMIDE 40 MG TABLET PO SCH (09:22)
[2019-03-10] MEDS: FAMOTIDINE 20 MG TABLET PO SCH (09:22)
[2019-03-10] MEDS: ENALAPRIL 10 MG TABLET PO SCH (09:22)
[2019-03-10] MEDS: BENZONATATE 100 MG CAPSULE PO SCH ×3 (09:22→20:58)
[2019-03-10] MEDS: VERAPAMIL ER 180MG TABLET.ER PO SCH (09:22)
[2019-03-10] MEDS ORDERED: FUROSEMIDE 40 MG/4 ML IV ONE (10:00)
[2019-03-10] MEDS ORDERED: FUROSEMIDE 80 MG TABLET PO SCH (12:00)
[2019-03-10 13:34] VITALS: BP 105/69
[2019-03-10] MEDS ORDERED: OMEPRAZOLE 20 MG CAPSULE.DR PO ONE (18:15)
[2019-03-10 19:21] VITALS: BP 105/65
[2019-03-10] MEDS: NICOTINE 21 MG/24 HR PATCH.TD24 TD SCH (20:00)
[2019-03-11] MEDS: CLINDAMYCIN 300 MG CAPSULE PO SCH ×3 (00:35→16:32)
[2019-03-11] MEDS: ACETAMINOPHEN 325 MG TABLET PO SCH ×2 (00:36→06:14)
[2019-03-11 00:42] VITALS: BP 116/76
[2019-03-11] MEDS: IPRATROPIUM 0.5 MG/2.5 ML INHA HHN SCH ×4 (03:00→20:36)
[2019-03-11] MEDS: BUDESONIDE 0.5 MG/2 ML INHA NPPB SCH ×2 (05:47→20:36)
[2019-03-11] MEDS: ASPIRIN 81 MG TABLET EC PO SCH (06:14)
[2019-03-11] MEDS: POTASSIUM CHLORIDE 20 MEQ PACKET PO SCH (08:00)
[2019-03-11 08:18] VITALS: BP 114/73
[2019-03-11] MEDS: BENZONATATE 100 MG CAPSULE PO SCH ×3 (08:29→21:22)
[2019-03-11] MEDS: FAMOTIDINE 20 MG TABLET PO SCH (08:29)
[2019-03-11] MEDS: FUROSEMIDE 40 MG TABLET PO SCH (08:30)
[2019-03-11] MEDS: ENALAPRIL 10 MG TABLET PO SCH (08:30)
[2019-03-11] MEDS: APIXABAN 5 MG TABLET PO SCH ×2 (08:30→21:22)
[2019-03-11] MEDS: VERAPAMIL ER 180MG TABLET.ER PO SCH (08:30)
[2019-03-11] MEDS ORDERED: ACETAMINOPHEN 325 MG TABLET PO PRN (11:30)
[2019-03-11 14:36] VITALS: BP 100/66
[2019-03-11] MEDS: NICOTINE 21 MG/24 HR PATCH.TD24 TD SCH (20:00)
[2019-03-11 20:57] VITALS: BP 111/67
[2019-03-12] MEDS: CLINDAMYCIN 300 MG CAPSULE PO SCH ×3 (01:01→16:29)
[2019-03-12] MEDS: IPRATROPIUM 0.5 MG/2.5 ML INHA HHN SCH ×4 (02:33→20:34)
[2019-03-12 03:18] VITALS: BP 132/80
[2019-03-12] MEDS: ASPIRIN 81 MG TABLET EC PO SCH (05:20)
[2019-03-12] MEDS: BUDESONIDE 0.5 MG/2 ML INHA NPPB SCH ×2 (07:25→20:34)
[2019-03-12 08:00] VITALS: BP 125/70
[2019-03-12] MEDS: POTASSIUM CHLORIDE 20 MEQ PACKET PO SCH (08:00)
[2019-03-12] MEDS: ENALAPRIL 10 MG TABLET PO SCH (08:06)
[2019-03-12] MEDS: FUROSEMIDE 40 MG TABLET PO SCH (08:06)
[2019-03-12] MEDS: APIXABAN 5 MG TABLET PO SCH ×2 (08:06→20:00)
[2019-03-12] MEDS: VERAPAMIL ER 180MG TABLET.ER PO SCH (08:06)
[2019-03-12] MEDS: FAMOTIDINE 20 MG TABLET PO SCH ×2 (08:07→20:01)
[2019-03-12] MEDS: BENZONATATE 100 MG CAPSULE PO SCH ×3 (08:07→20:01)
[2019-03-12 14:07] VITALS: BP 113/71
[2019-03-12] MEDS: NICOTINE 21 MG/24 HR PATCH.TD24 TD SCH (19:19)
[2019-03-12 20:30] VITALS: BP 112/56
[2019-03-13 00:01] VITALS: BP 117/116
[2019-03-13] MEDS: IPRATROPIUM 0.5 MG/2.5 ML INHA HHN SCH ×2 (03:15→09:19)
[2019-03-13] MEDS: ASPIRIN 81 MG TABLET EC PO SCH (06:02)
[2019-03-13 06:10] VITALS: BP 126/76
[2019-03-13] MEDS: POTASSIUM CHLORIDE 20 MEQ PACKET PO SCH (08:00)
[2019-03-13] MEDS: CLINDAMYCIN 300 MG CAPSULE PO SCH ×2 (08:36)
[2019-03-13] MEDS: VERAPAMIL ER 180MG TABLET.ER PO SCH (08:36)
[2019-03-13] MEDS: APIXABAN 5 MG TABLET PO SCH (08:36)
[2019-03-13] MEDS: FUROSEMIDE 40 MG TABLET PO SCH (08:36)
[2019-03-13] MEDS: BENZONATATE 100 MG CAPSULE PO SCH (08:37)
[2019-03-13] MEDS: FAMOTIDINE 20 MG TABLET PO SCH (08:37)
[2019-03-13] MEDS: ENALAPRIL 10 MG TABLET PO SCH (08:45)
[2019-03-13] MEDS: BUDESONIDE 0.5 MG/2 ML INHA NPPB SCH (09:19)
[2019-03-13] MEDS ORDERED: APIX5TAB PO (10:03)
[2019-03-13] MEDS ORDERED: CLIN300C8 PO (10:03)
== END 2019-03-13 11:15 | disposition home or self-care (01) | DRG 871 ==
LOC: ED 14:37 → EDIP 16:31 → 5SO 18:15 → 3N 03-08 12:09 → DCLOUNGE 03-13 11:04
PROVIDERS: ADMIT Family Medicine; ATTEND Family Medicine
DX: A41.9 Sepsis, unspecified organism (principal); N17.0 Acute kidney failure with tubular necrosis; L03.116 Cellulitis of left lower limb; E87.1 Hypo-osmolality and hyponatremia; I50.32 Chronic diastolic (congestive) heart failure; Z68.42 Body mass index [BMI] 45.0-49.9, adult; I48.91 Unspecified atrial fibrillation; E87.6 Hypokalemia; Z90.710 Acquired absence of both cervix and uterus; F17.210 Nicotine dependence, cigarettes, uncomplicated; I11.0 Hypertensive heart disease with heart failure; J43.9 Emphysema, unspecified; I35.0 Nonrheumatic aortic (valve) stenosis; E66.01 Morbid (severe) obesity due to excess calories; I48.0 Paroxysmal atrial fibrillation; Z79.01 Long term (current) use of anticoagulants; Z79.51 Long term (current) use of inhaled steroids; Z82.49 Family history of ischemic heart disease and other diseases of the circulatory system
CPT/HCPCS: 36415; 71045; 80048; 82040; 83036; 83605; 84145; 85025; 87040; 93005; 94640; 96374; 99291; G0378; J0696; J1644; J7626; J7644; Q0162; J7030

== ENCOUNTER → 2019-03-22 | Outpatient (CLI) | payer MEDICARE, MEDICAID ==
[~2019-03-22] MED LIST changes: +APIX5TAB PO
== END | disposition home or self-care (01) ==
LOC: RAD 10:52
PROVIDERS: ATTEND Student in an Organized Health Care Education/Training Program
DX: R60.0 Localized edema (principal)

== ENCOUNTER → 2020-05-19 | Outpatient (CLI) | payer BC, MEDICARE ==
[~2020-05-19] MED LIST changes: -ASPI-515 PO; +ASPI-963 PO; -CLIN300C8 PO; +CLIN300C9 PO; -ENAL10TA PO; +ENAL10TA9 PO
== END | disposition home or self-care (01) ==
LOC: CVU 06:46
PROVIDERS: ATTEND Internal Medicine Cardiovascular Disease
DX: I08.0 Rheumatic disorders of both mitral and aortic valves (principal)
CPT/HCPCS: 93306

== ENCOUNTER → 2020-05-21 | Outpatient (CLI) | payer MEDICARE, MEDICAID ==
[~2020-05-21] MED LIST changes: +BENZ100C PO; +RIVA20TA PO; +SPIR25TA5 PO; +TRIA10.8 NAS
[2020-05-21 14:45] LABS: ALANINE AMINOTRANSFERASE 19 U/L (12-78); ALBUMIN 3.7 g/dL (3.4-5.0); ANION GAP 6 mmol/L (5-15); CALCIUM 9.2 mg/dL (8.5-10.1); CHLORIDE 105 mmol/L (98-107)
[2020-05-21 14:47] LABS: ALKALINE PHOSPHATASE 92 U/L (45-117); BILIRUBIN,TOTAL 0.3 mg/dL (0.2-1.0)
== END | disposition home or self-care (01) ==
LOC: STAR 13:00
PROVIDERS: ATTEND Surgery
DX: Z01.818 Encounter for other preprocedural examination (principal); K46.0 Unspecified abdominal hernia with obstruction, without gangrene; Z20.822 Contact with and (suspected) exposure to COVID-19
CPT/HCPCS: 80053; 87635; 93005

== ENCOUNTER 2020-06-16 14:03 | Emergency (ER) | payer MEDICARE, MEDICAID ==
[~2020-06-16] VITALS: Ht 165.1 cm; Wt 134.7 kg
--- NOTE | 2020-06-16 14:42 | NUR ---
PT STATING C/O PAIN CRAMPING IN LEFT CALVE AREA. REPORTS TAKING WATER PILLS AND STOPPED TAKING POTASSIUM PILLS TO DOCTORS ORDER. PEDAL PULSES FOUND IN LEFT FOOT, EDEMA 3+.
[2020-06-16 15:00] LABS: BASOPHILS % (AUTO) 1 % (0-1); EOSINOPHILS % (AUTO) 2 % (1-7); LYMPHOCYTES % (AUTO) 19 % (22-44); MD NO; MEAN CORPUSCULAR HEMOGLOBIN 25.3 pg (27.0-34.8); MEAN CORPUSCULAR HGB CONC 32.3 g/dL (32.4-35.8); MEAN PLATELET VOLUME 7.3 fL (7.4-10.4); MONOCYTES % (AUTO) 9 % (2-9); NEUTROPHILS % (AUTO) 70 % (42-75); PLATELET COUNT 342 x10^3/uL (130-400); RED BLOOD COUNT 5.16 x10^6/uL (3.82-5.3); RED CELL DISTRIBUTION WIDTH 14.9 % (9.6-15.2)
[2020-06-16 15:10] LABS: ALBUMIN 3.6 g/dL (3.4-5.0); ANION GAP 6 mmol/L (5-15); CALCIUM 9.2 mg/dL (8.5-10.1); CHLORIDE 104 mmol/L (98-107); CREATININE 1.29 mg/dL (0.55-1.02)
[2020-06-16 15:58] VITALS: BP 127/59
== END 2020-06-16 16:13 | disposition home or self-care (01) ==
LOC: ED 15:55
DX: M79.662 Pain in left lower leg (principal); R60.0 Localized edema; R94.31 Abnormal electrocardiogram [ECG] [EKG]; J43.9 Emphysema, unspecified; I48.91 Unspecified atrial fibrillation; I11.0 Hypertensive heart disease with heart failure; I50.9 Heart failure, unspecified; Z90.710 Acquired absence of both cervix and uterus; Z88.0 Allergy status to penicillin; Z88.2 Allergy status to sulfonamides; Z88.5 Allergy status to narcotic agent; Z88.1 Allergy status to other antibiotic agents; Z88.6 Allergy status to analgesic agent
CPT/HCPCS: 36415; 80048; 82040; 85025; 93005; 99284

== ENCOUNTER 2020-12-09 14:16 | Emergency (ER) | payer MEDICARE, MEDICAID ==
[~2020-12-09] VITALS: Ht 165.1 cm; Wt 141.0 kg
[~2020-12-09 14:16] MED LIST changes: -FLUT250D PO; +FLUT250D2 PO
--- NOTE | 2020-12-09 18:11 | NUR ---
PT BROUGHT BACK FROM LOBBY TO ROOM
[2020-12-09 18:17] VITALS: BP 129/72
--- NOTE | 2020-12-09 18:30 | NUR ---
PT UP TO USE RESTROOM, ABLE TO WALK INDEPENDENTLY WITH SLIGHT SHUFFLE GAIT DUE TO PAIN
--- NOTE | 2020-12-09 19:44 | NUR ---
Patient/Caregiver given discharge instructions and they have confirmed that they understand the instructions. pt wheeled to dc desk at request
== END 2020-12-09 20:19 | disposition home or self-care (01) ==
LOC: ED 19:35
DX: S90.32XA Contusion of left foot, initial encounter (principal); F17.210 Nicotine dependence, cigarettes, uncomplicated; I11.0 Hypertensive heart disease with heart failure; J44.9 Chronic obstructive pulmonary disease, unspecified; I48.91 Unspecified atrial fibrillation; Z90.710 Acquired absence of both cervix and uterus; W23.0XXA Caught, crushed, jammed, or pinched between moving objects, initial encounter; Y93.89 Activity, other specified; Y92.009 Unspecified place in unspecified non-institutional (private) residence as the place of occurrence of the external cause; Y99.8 Other external cause status
CPT/HCPCS: 99283; 99406